=== PATIENT | female | born 1970 | race Caucasian/White ===

== ENCOUNTER → 2024-01-11 13:52 | Outpatient (REF) | payer OTHER, SELFPAY | LOC: HWRAD 13:52 | PROVIDERS: ATTENDING PHYSICIAN Obstetrics & Gynecology | DX: N95.1 Menopausal and female climacteric states (principal); R10.2 Pelvic and perineal pain; Z12.31 Encounter for screening mammogram for malignant neoplasm of breast | CPT/HCPCS: 76830; 76856; 77063; 77067 ==

== ENCOUNTER → 2025-01-23 14:03 | Outpatient (REF) | payer OTHER, SELFPAY | LOC: HWWDC 14:03 | PROVIDERS: ATTENDING PHYSICIAN Family Medicine; REFERRING PHYSICIAN Obstetrics & Gynecology | DX: Z12.31 Encounter for screening mammogram for malignant neoplasm of breast (principal) | CPT/HCPCS: 77063; 77067 ==

== ENCOUNTER → 2025-01-25 07:35 | Outpatient (REF) | payer OTHER, SELFPAY ==
[2025-01-25 08:40] LABS: % Basophils 1.4 % (0-2); % Eosinophils 3.3 % (0-6); % Lymphocytes 31.9 % (20.5-51.1); % Monocytes 7.4 % (1.7-9.3); Absolute Basophils 0.1 10^3/uL (0-0.2); Absolute Eosinophils 0.1 10^3/uL (0-0.7); Absolute Lymphocytes 1.2 10^3/uL (1.2-3.4); Absolute Monocytes 0.3 10^3/uL (0.1-0.6); Absolute Neutrophils 2.1 10^3/uL (1.4-6.5); Hematocrit 42.6 % (37.0-47.0); Hemoglobin 13.9 g/dL (12.0-16.0); Mean Corp Hgb Conc. 32.6 g/dL (33.0-37.0); Mean Corpuscular Hgb 30.2 pg (27.0-31.0); Mean Corpuscular Volume 92.4 fL (81.0-99.0); Mean Platelet Volume 10.3 fL (7.4-10.4); Nucleated Red Blood Cells % 0 %; Platelet Count 202 10^3/uL (130-400); Red Blood Cell Count 4.61 10^6/uL (4.20-5.40); Red Cell Dist. Width 12.7 % (11.5-14.5); White Blood Cell Count 3.7 10^3/uL (4.8-10.8)
[2025-01-25 09:04] LABS: ALT (SGPT) 21 U/L (0-35); AST (SGOT) 30 U/L (14-36); Albumin 4.5 g/dl (3.5-5.0); Alkaline Phosphatase 80 U/L (38-126); Blood Urea Nitrogen 18 mg/dl (7-17); Calcium 9.5 mg/dl (8.4-10.2); Carbon Dioxide 26 mmol/L (22-30); Chloride 104 mmol/L (98-107); Glucose 82 mg/dl (70-99); HDL Cholesterol 63 mg/dl; LDL Cholesterol, Calculated 84 mg/dl; Potassium 4.6 mmol/L (3.5-5.1); Sodium 139 mmol/L (135-145); Total Bilirubin 1.1 mg/dl (0.2-1.3); Total Cholesterol 157 mg/dl (50-199); Triglyceride 50 mg/dl (10-149); Very Low Density Lipoprotein 10 mg/dl (0-30); eGFR > 60.00
[2025-01-25 09:29] LABS: TSH 2.63 uIU/ml (0.47-4.68)
[2025-01-25 10:55] LABS: Glycohemoglobin (HgbA1c) 5.2 % (4.0-5.6)
== END ==
LOC: REG 07:35
PROVIDERS: ATTENDING PHYSICIAN Family Medicine
DX: E03.9 Hypothyroidism, unspecified (principal); E78.2 Mixed hyperlipidemia; Z00.00 Encounter for general adult medical examination without abnormal findings
CPT/HCPCS: 36415; 80053; 80061; 83036; 84443; 85025

== ENCOUNTER 2025-06-23 06:24 | Day surgery (SDC) | payer OTHER, SELFPAY | END 2025-06-23 12:04 | disposition home or self-care (01) | LOC: GI 06:24 | PROVIDERS: ATTENDING PHYSICIAN Internal Medicine | DX: Z12.11 Encounter for screening for malignant neoplasm of colon (principal); K50.10 Crohn's disease of large intestine without complications | CPT/HCPCS: 45385; 45380; 88305 ==

== ENCOUNTER → 2025-07-01 13:11 | Outpatient (REF) | payer OTHER, SELFPAY | LOC: HWLAB 13:11 | PROVIDERS: ATTENDING PHYSICIAN Internal Medicine; FAMILY PHYSICIAN Family Medicine | DX: K52.9 Noninfective gastroenteritis and colitis, unspecified (principal) | CPT/HCPCS: 83993 ==

== ENCOUNTER → 2025-07-04 10:41 | Outpatient (REF) | payer OTHER, SELFPAY ==
[2025-07-04 16:01] LABS: Hematocrit 40.9 % (37.0-47.0); Hemoglobin 13.4 g/dL (12.0-16.0); Mean Corp Hgb Conc. 32.8 g/dL (33.0-37.0); Mean Corpuscular Volume 92.1 fL (81.0-99.0); Platelet Count 209 10^3/uL (130-400); Red Cell Dist. Width 12.4 % (11.5-14.5)
[2025-07-04 16:08] LABS: ALT (SGPT) 70 U/L (0-35); AST (SGOT) 52 U/L (14-36); Albumin 4.4 g/dl (3.5-5.0); Alkaline Phosphatase 88 U/L (38-126); Blood Urea Nitrogen 22 mg/dl (7-17); Calcium 9.2 mg/dl (8.4-10.2); Carbon Dioxide 28 mmol/L (22-30); Chloride 103 mmol/L (98-107); Glucose 98 mg/dl (70-99); Potassium 4.0 mmol/L (3.5-5.1); Sodium 137 mmol/L (135-145); Total Protein 7.2 g/dl (6.3-8.2); eGFR > 60.00
[2025-07-04 16:11] LABS: C-Reactive Protein < 5.00 mg/L (0.0-10.00)
== END ==
LOC: HWLAB 10:41
PROVIDERS: ATTENDING PHYSICIAN Internal Medicine; FAMILY PHYSICIAN Physician Assistant Medical
DX: K52.9 Noninfective gastroenteritis and colitis, unspecified (principal)
CPT/HCPCS: 36415; 80053; 85027; 85652; 86140

== ENCOUNTER → 2025-08-04 06:52 | Outpatient (REF) | payer OTHER, SELFPAY ==
[2025-08-04 10:46] LABS: INR 1.08; PT 14.3 Sec (11.4-14.6)
[2025-08-04 10:47] LABS: APTT 32.5 Sec (23.4-35.0)
[2025-08-04 11:05] LABS: ALT (SGPT) 24 U/L (0-35); AST (SGOT) 28 U/L (14-36); Albumin 4.2 g/dl (3.5-5.0); Alkaline Phosphatase 84 U/L (38-126); GGTP 25 U/L (12-43); Iron 73 ug/dl (37-170); Total Protein 7.0 g/dl (6.3-8.2)
[2025-08-04 11:07] LABS: C-Reactive Protein < 5.00 mg/L (0.0-10.00)
[2025-08-04 11:27] LABS: Vitamin D, 25-OH*** 43.4 ng/mL (30-80)
[2025-08-04 11:42] LABS: Ferritin 16.8 ng/ml (11.1-264.0)
[2025-08-04 12:13] LABS: Folate 7.1 ng/ml (2.76-20); Vitamin B12 417 pg/ml (239-931)
[2025-08-04 19:10] LABS: Hepatitis B Surface Antigen Negative (Negative)
[2025-08-04 19:27] LABS: Hepatitis A Antibody, Total Negative (Negative); Hepatitis C Antibody Negative (Negative)
[2025-08-06 10:31] LABS: tTG IgA Antibody 2.2 EU/ml (0-19); tTG IgG Antibody 10.0 EU/ml (0-19)
[2025-08-06 21:00] LABS: LKM-1 Ab (IgG) 3.0 U (0.0-24.9)
[2025-08-06 23:31] LABS: Mitochondrial M2 Ab, IgG 19.6 Units (0.0-24.9)
[2025-08-07 05:36] LABS: ANA, IgG Reflex to HEp-2 None Detected (None Detected)
== END ==
LOC: HWLAB 06:52
PROVIDERS: ATTENDING PHYSICIAN Internal Medicine; FAMILY PHYSICIAN Family Medicine
DX: K76.9 Liver disease, unspecified (principal)
CPT/HCPCS: 36415; 80076; 82103; 82104; 82306; 82390; 82607; 82728; 82746; 82784; 82977; 83516; 83540; 85610; 85652; 85730; 86015; 86038; 86140; 86231; 86376; 86381; 86480; 86704; 86706; 86708; 86709; 86803; 87340

== ENCOUNTER → 2025-09-25 11:20 | Outpatient (REF) | payer OTHER, SELFPAY | LOC: MRI 3T 11:20 | PROVIDERS: ATTENDING PHYSICIAN Internal Medicine; PRIMARYCARE PHYSICIAN Family Medicine | DX: K76.9 Liver disease, unspecified (principal); K50.118 Crohn's disease of large intestine with other complication | CPT/HCPCS: 72197; 74183; A9575 ==